=== PATIENT | male | born 1975 | race Hispanic/Latino ===

== ENCOUNTER 2020-11-16 10:04 | Day surgery (SDC) | payer BC ==
--- NOTE | 2020-11-24 00:14 | Electrophysiological Studies ---
DATE OF SERVICE: 11/16/2020 DATE OF PROCEDURE: 11/16/2020. DESCRIPTION OF PROCEDURE: The patient was brought to the cardiac catheterization lab and placed on the table. Images were obtained in the AP and SEGAL views. These images revealed a biventricular cardiac defibrillator, which includes a right atrial, right ventricle, and left ventricular lead. No other hardware was noted. COMPLICATIONS: None. ASSESSMENT: Biventricular ICD present. PLAN: The patient will follow up in the office in several weeks. TID: [id number] RECEIPT: [id number] ABBY/ISAAC
== END 2020-11-16 10:05 | disposition home or self-care (01) ==
LOC: FLUORO 10:04
PROVIDERS: ATTEND Internal Medicine Cardiovascular Disease
DX: I44.2 Atrioventricular block, complete (principal); I42.0 Dilated cardiomyopathy
CPT/HCPCS: 76000